=== PATIENT | female | born 1945 | race Caucasian/White ===

== ENCOUNTER 2017-12-28 10:41 | Day surgery (SDC) | payer MEDICARE ==
[2017-12-23 10:49] VITALS: BMI 37.4
[2017-12-28] MEDS ORDERED: Propofol 10 mg/ml Inj (20 ML) ONE (14:20)
[2017-12-28] MEDS ORDERED: cefOXitin IV 1 gm in Dextrose 1 GM/50 ML BAG IVPB ONE (14:31)
--- NOTE | 2017-12-28 14:55 | PCM.SURG1 ---
Surgeon's Initial Post Op Note - Surgeon's Notes Surgeon: Dr. Gregg Film Color Tester: none Type of Anesthesia: General Endo Anesthesia Administered By: Dr. Richardson Pre-Operative Diagnosis: 72 yo with Cervical polyp, Thickened endometrium, Postmenopausal bleeding, endometrial polyp, Fibroid Operative Findings: cervical polyp, Av uterus 10 wks with Multiple endometrial polyp, fibroid Post-Operative Diagnosis: sAME ABOVE Operation Performed: Cervical polypectomy, Hysteroscopy Myosure D and C Specimen/Specimens Removed: Cervical polyp, endometrial polyp, fibroid Estimated Blood Loss: EBL {In ML}: 5 Blood Products Given: N/A Drains Used: No Drains Post-Op Condition: Good Date of Surgery/Procedure: 12/28/17 Time of Surgery/Procedure: 14:55
[2017-12-28 16:12] VITALS: RESP 18
[2017-12-28 16:47] VITALS: BP 119/57; PULSE 60; TEMP 97.8; O2SAT 99
--- NOTE | 2017-12-29 07:22 | OP ---
PROCEDURE DATE: 12/28/2017 PREOPERATIVE DIAGNOSES: A 72-year-old female with endometrial polyp as well as leiomyoma, thickened endometrium, postmenopausal bleeding. POSTOPERATIVE DIAGNOSES: A 72-year-old female with endometrial polyp as well as leiomyoma, thickened endometrium, postmenopausal bleeding. PROCEDURE: Cervical polypectomy as well as hysteroscopy, MyoSure, D and C. SURGEON: Fela Gregg MD TYPE OF ANESTHESIA: General. ANESTHESIOLOGIST: Dr. Richardson. IN's AND OUT's: 200 mL. SPECIMEN: Cervical polyp, endometrial polyp, fibroid, as well as EMC and ECC. DESCRIPTION OF PROCEDURE: The patient was informed of the risk factors, benefits, and alternatives of the procedure. Risk factors included infection, bleeding, damage to the surrounding organs and tissues, complication from anesthesia and possible . After informed consent was obtained, she was then taken to the operating room, prepped and draped in a normal sterile fashion, placed in a dorsal lithotomy position. A weighted speculum was placed into the vagina. The anterior lip of the cervix was grasped with a single-toothed tenaculum. It was noted that she did have a cervical polyp. A cervical polypectomy was then performed and submitted to the pathology. Excellent hemostasis was noted. In that particular instance, the uterus was gently dilated. Upon complete dilatation, the hysteroscope was then placed. A complete surveillance of the uterine cavity demonstrated endometrial polyp and leiomyoma. The MyoSure device was then utilized to remove the endometrial polyp and the leiomyoma under direct visualization. Excellent hemostasis was noted. Upon completion, the hysteroscope was then removed, and then a fractional D and C was performed. EMC and ECC were performed and submitted to pathology. All instruments from the vagina were removed. Instruments and lap count were correct x2. The patient was then taken to recovery room in stable condition and instructed to follow up in the office in one week. Fela Gregg MD
== END 2017-12-28 16:45 | disposition home or self-care (01) ==
LOC: C.SDS 10:41
PROVIDERS: ATTEND Obstetrics & Gynecology
DX: N84.1 Polyp of cervix uteri (principal); N85.00 Endometrial hyperplasia, unspecified; N95.0 Postmenopausal bleeding; D25.9 Leiomyoma of uterus, unspecified
CPT/HCPCS: 58558; 82948; 88305; J0694; J2704; J3010